=== PATIENT | male | born 1995 | race Caucasian/White ===

== ENCOUNTER 2022-09-21 16:39 | Emergency (ER) | payer SELFPAY ==
[~2022-09-21] VITALS: Ht 167.6 cm; Wt 118.2 kg
[2022-09-21] MEDS ORDERED: TETANUS/DIPHTHERIA TOX ADULT 0.5 ML SYR ONE (16:51)
[2022-09-21] MEDS ORDERED: BACITRACIN ZINC 0.9GM TP ONE ×2 (16:51→17:00)
[2022-09-21] MEDS ORDERED: IBUPROFEN200 MG PO (16:53)
[2022-09-21] MEDS ORDERED: DOXYCYCLINE HY100 MG PO (16:53)
[2022-09-21] MEDS ORDERED: TETANUS/DIPHTHERIA TOX ADULT 0.5 ML SYR IM ONE (17:00)
[2022-09-21] MEDS ORDERED: MUPIROCIN22 GM (17:07)
== END 2022-09-21 17:21 | disposition home or self-care (01) ==
LOC: FSED 17:18
DX: S51.831A Puncture wound without foreign body of right forearm, initial encounter (principal); W25.XXXA Contact with sharp glass, initial encounter; Y92.89 Other specified places as the place of occurrence of the external cause; L01.00 Impetigo, unspecified; R00.0 Tachycardia, unspecified
CPT/HCPCS: 90471; 90714; 96372; 99283

== ENCOUNTER 2024-09-14 11:49 | Emergency (ER) | payer BC ==
[~2024-09-14] VITALS: Ht 167.6 cm; Wt 122.0 kg
[~2024-09-14 11:49] MED LIST: BACTRIM DS TAB1 EACH PO; DOXYCYCLINE HY100 MG PO; IBUPROFEN200 MG PO; MUPIROCIN22 GM; ULTRAM 50MG50 MG PO
[2024-09-14] MEDS ORDERED: CEPHALEXIN500 MG PO (12:33)
[2024-09-14] MEDS ORDERED: ELIMITE60 GM TOP (12:34)
[2024-09-14] MEDS ORDERED: CYCLOBENZAPRINE5 MG PO (13:15)
[2024-09-14 13:26] VITALS: PULSE 106; RESP 18; TEMP 98.2; O2SAT 99
[2024-09-14] MEDS: IBUPROFEN 600 MG TAB PO STA (13:45)
== END 2024-09-14 13:28 | disposition home or self-care (01) ==
LOC: FSED 11:59
DX: M54.2 Cervicalgia (principal); L03.311 Cellulitis of abdominal wall; M62.838 Other muscle spasm; Z76.0 Encounter for issue of repeat prescription
CPT/HCPCS: 72125; 99284